=== PATIENT | male | born 1985 | race Caucasian/White ===

== ENCOUNTER 2017-05-25 13:17 | Emergency (ER) | payer OTHER ==
[~2017-05-25] VITALS: Ht 182.9 cm; Wt 87.7 kg
[2017-05-25 14:16] VITALS: BP 146/87
== END 2017-05-25 14:16 | disposition home or self-care (01) ==
LOC: ED 13:17
DX: T63.441A Toxic effect of venom of bees, accidental (unintentional), initial encounter (principal); R22.0 Localized swelling, mass and lump, head; Y92.89 Other specified places as the place of occurrence of the external cause
CPT/HCPCS: J7512; Q0163